=== PATIENT | female | born 1965 | race Caucasian/White ===

== ENCOUNTER 2019-06-04 06:55 | Day surgery (SDC) | payer OTHER ==
[2019-06-04] MEDS ORDERED: SOD CHLORIDE 0.9% 1,000 ML IV (09:30)
[2019-06-04 10:56] LABS: ADD MAN DIFF? NO
[2019-06-04 10:58] LABS: WHITE BLOOD COUNT 6.8 10^3/ul (4.8-10.8)
[2019-06-04 10:58] LABS: BASOPHILS % 0.6 % (0.0-2.0); EOSINOPHILS # 0.1 10^3/ul (0.0-0.5); EOSINOPHILS % 1.3 % (0.0-7.0); HEMATOCRIT 38.5 % (37.0-47.0); HEMOGLOBIN 11.8 g/dl (12.0-16.0); LYMPHOCYTES # 1.3 10^3/ul (0.8-2.9); MEAN CORPUSCULAR HGB CONC 30.6 g/dl (32.0-37.0); MEAN CORPUSCULAR VOLUME 78.4 fl (82.0-101.0); MEAN PLATELET VOLUME 11.4 fl (7.4-10.4); MONOCYTE # 0.4 10^3/ul (0.3-0.9); NEUTROPHIL # 4.9 10^3/ul (1.6-7.5); NEUTROPHILS % 72.8 % (39.0-77.0); PLATELET COUNT 221 10^3/UL (140-415); RED BLOOD COUNT 4.91 10^6/ul (4.20-5.40); RED CELL DISTRIBUTION WIDTH 15.4 % (11.5-14.5)
[2019-06-04 11:16] LABS: ALANINE AMINOTRANSFERASE 24 IU/L (13-69); ALBUMIN 3.8 g/dl (3.3-4.9); ALBUMIN/GLOBULIN RATIO 1.18; ALKALINE PHOSPHATASE 77 IU/L (42-121); ANION GAP 6 (5-13); ASPARTATE AMINO TRANSFERASE 17 IU/L (15-46); BILIRUBIN,INDIRECT 0.6 mg/dl (0-1.1); BILIRUBIN,TOTAL 0.6 mg/dl (0.2-1.3); BLOOD UREA NITROGEN 11 mg/dl (7-20); CARBON DIOXIDE 24 mmol/L (21-31); CHLORIDE 109 mmol/L (97-110); CREATININE 0.46 mg/dl (0.44-1.00); Estimated GFR > 60 mL/min (>60); GLUCOSE 167 mg/dl (70-220); POTASSIUM 4.1 mmol/L (3.5-5.1); SODIUM 139 mmol/L (135-144)
[2019-06-04] MEDS ORDERED: SEVOFLURANE 15 MIN (11:16)
[2019-06-04] MEDS ORDERED: CEFAZOLIN 1 GM INJ (11:16)
[2019-06-04] MEDS ORDERED: FENTAnyl 50 MCG/ML VIAL (11:16)
[2019-06-04 11:31] LABS: PROTIME 13.3 Sec (11.9-14.9)
[2019-06-04 11:35] LABS: PARTIAL THROMBOPLASTIN TIME 36.5 Sec (23.0-35.0)
[2019-06-04] MEDS: BUPIVACAINE 0.5%/EPI (SDV) 30 ML INJ (11:36)
[2019-06-04] MEDS ORDERED: PROPOFOL 20 ML (11:55)
[2019-06-04] MEDS ORDERED: ONDANSETRON 4 MG INJ (11:56)
[2019-06-04] MEDS ORDERED: DEXAMETHASONE 4 MG/ML 5 ML INJ (11:56)
[2019-06-04] MEDS ORDERED: LIDOCAINE 2% (SDV) 5 ML INJ (11:57)
[2019-06-04] MEDS ORDERED: hydrALAzine 20 MG INJ IV (12:30)
[2019-06-04] MEDS ORDERED: DIPHENHYDRAMINE 50 MG INJ IV (12:30)
[2019-06-04] MEDS ORDERED: MEPERIDINE 25 MG INJ IV (12:30)
[2019-06-04] MEDS ORDERED: ONDANSETRON 4 MG INJ IV (12:30)
[2019-06-04] MEDS ORDERED: FENTAnyl 50 MCG/ML VIAL IV ×3 (12:30)
[2019-06-04] MEDS ORDERED: LORAZEPAM 2 MG INJ IV (12:30)
[2019-06-04] MEDS ORDERED: LABETALOL HCL 20MG INJ IV (12:30)
[2019-06-04] MEDS ORDERED: OXYCODONE/ACETAMINOPHEN (5/325) TAB PO ×2 (12:30)
[2019-06-04] MEDS ORDERED: ALBUTEROL 0.083% (NEB) 2.5 MG/3 ML AMP HHN (12:30)
[2019-06-04] MEDS ORDERED: EPHEDrine 25 MG/5 ML SYG IV (12:30)
== END 2019-06-04 13:33 | disposition home or self-care (01) ==
LOC: SDS 06:55
DX: D17.21 Benign lipomatous neoplasm of skin and subcutaneous tissue of right arm (principal); R94.31 Abnormal electrocardiogram [ECG] [EKG]
CPT/HCPCS: 24071; 71045; 80053; 84703; 85025; 85610; 85730; 88307; 93005